=== PATIENT | male | born 1940 | race Caucasian/White ===

== ENCOUNTER 2017-09-25 12:36 | Emergency (ER) | payer OTHER ==
[~2017-09-25] VITALS: Ht 170.2 cm; Wt 74.8 kg
[2017-09-25] MEDS ORDERED: LIPITOR20 MG (14:39)
[2017-09-25] MEDS ORDERED: FINASTERIDE5 MG (14:40)
[2017-09-25] MEDS ORDERED: ASPIRIN81 MG (14:40)
[2017-09-25] MEDS ORDERED: LISINOPRIL10 MG (14:40)
[2017-09-25] MEDS ORDERED: TAMS0.4C (14:40)
== END 2017-09-25 16:31 | disposition home or self-care (01) ==
LOC: ER 12:36
DX: H66.92 Otitis media, unspecified, left ear (principal)